=== PATIENT | female | born 1960 | race American Indian/Alaskan Native ===

== ENCOUNTER 2021-01-18 11:30 | Outpatient (CLI) | payer MEDICARE, MEDICAID, SELFPAY ==
--- NOTE | 2021-01-18 11:50 | CT_ITS ---
WS: [id number] LDCT LUNG CANCER SCREENING TECHNIQUE: Noncontrast CT of the chest with coronal and sagittal reformatted images. CLINICAL INFORMATION: HX OF TOBACCO USE COMPARISON: CT chest February 2018 DLP: 51.02 mGy.cm DIvol: 1.[address] scans at [facility] use at least one of these dose optimization techniques: automat ed exposure control; mA and/or kV adjustment per patient size (includes targeted exams where dose is matched to clinical indication); or iterative reconstruction. FINDINGS: No suspicious pulmonary parenchymal opacities. A few calcified granulomas. Advanced chronic emphysematous changes. Aortic calcification. Coronary calcification. Prominent right anterior mediastinal lymph node measuring 11 mm is unchanged. Left subclavian stent. No axillary lym phadenopathy. CT/CT lung screening [id number] IMPRESSION: LUNG-RADS: 2-Benign Appearance or Behavior FOLLOW UP: 12 Month: Continue annual screening with LDCT
== END 2021-01-18 11:31 | disposition home or self-care (01) ==
LOC: RAD 11:46
DX: Z12.2 Encounter for screening for malignant neoplasm of respiratory organs (principal); Z87.891 Personal history of nicotine dependence; I70.0 Atherosclerosis of aorta; I25.10 Atherosclerotic heart disease of native coronary artery without angina pectoris
CPT/HCPCS: 71271

== ENCOUNTER 2021-02-23 09:11 | Outpatient (CLI) | payer MEDICARE, MEDICAID, SELFPAY ==
--- NOTE | 2021-02-23 09:15 | MM_ITS ---
WS: [id number] BILATERAL SCREENING DIGITAL MAMMOGRAM WITH CAD HISTORY: SCREENING COMPARISON: 03/12/2018 Bilateral CC and MLO views submitted. Computer aided detection analyzed. Breast composition: There are scattered areas of fibroglandular density. No suspicious masses, microc alcifications or architectural distortion. Benign scattered calcifications within each breast. MM/[place] [id number] IMPRESSION: BI-RADS: 2-Benign FOLLOW UP: 1 Year Follow-up
== END 2021-02-23 09:12 | disposition home or self-care (01) ==
LOC: RADSHAW 09:14
DX: Z12.31 Encounter for screening mammogram for malignant neoplasm of breast (principal)
CPT/HCPCS: 77067

== ENCOUNTER 2021-10-03 13:17 | Emergency (ER) | payer MEDICARE, MEDICAID, SELFPAY ==
[2021-10-03 13:30] VITALS: BP 97/68; PULSE 84; RESP 21; TEMP 36.1; O2SAT 96; BMI 30.7
[2021-10-03 14:15] LABS: Basophils % 0.6 %; Eosinophils % 0.4 %; Hematocrit 43.7 % (37.0-47.0); Hemoglobin 14.4 g/dL (11.5-15.3); Lymphocytes # 1.9 10^3/uL (0.8-4.8); Lymphocytes % 34.7 %; Mean Corpuscular Hemoglobin 31.2 pg (28.0-34.0); Mean Corpuscular Volume 94.6 fl (81-99); Mean Platelet Volume 9.5 fL (7.4-10.4); Monocytes # 0.7 10^3/uL (0.2-0.9); Monocytes % 12.1 %; Neutrophils # 2.78 10^3/uL (1.8-7.7); Neutrophils % 51.8 %; Nucleated Red Blood Cells % 0 %; Platelet Count 263 10^3/cmm (130-400); Red Blood Count 4.62 10^6/uL (4.1-5.3); Red Cell Distribution Width 13.1 % (12.1-15.1); White Blood Count 5.4 10^3/uL (4.0-10.0)
[2021-10-03 14:39] LABS: Slide Review Slide Review Perform
[2021-10-03 14:46] LABS: Alanine Aminotransferase 17 U/L (0-33); Albumin Level 3.5 g/dL (3.5-5.2); Alkaline Phosphatase 96 IU/L (35-105); Anion Gap 17.1 (5-19); Aspartate Amino Transferase 28 U/L (0-32); Blood Urea Nitrogen 8 mg/dL (8-23); Calcium 8.3 mg/dL (8.5-10.5); Carbon Dioxide 19 mmol/L (22-29); Chloride 107 mmol/L (98-107); Globulin 3.1 g/dL (1.3-4.6); Glucose 95 mg/dL (65-115); Osmolality Calculated 286 mOsm/kg (285-295); Potassium 4.1 mmol/L (3.5-5.1); Sodium 139 mmol/L (136-145); Thyroid Stimulating Hormone 1.68 uIU/mL (0.27-4.20); Total Bilirubin 0.6 mg/dL (0.15-1.2); Total Protein 6.6 g/dL (6.6-8.7)
[2021-10-03 15:25] VITALS: BP 134/84; PULSE 87; RESP 18; O2SAT 97
--- NOTE | 2021-10-03 16:56 | ECG_ITS ---
[facility] Test Date: 2021-10-03 Pat Name: Bea Mazariegos Department: Room: Gender: Female Facility Worker: : 1960 Requested By: Grzegorz Martin Order Number: [id number] Teressa MD: Kimberley Whiting M.D. Measurements Intervals [place] Rate: 88 P: [place]: QRS: 68 QRSD: 128 T: 47 QT: 397 QTc: 482 Interpretive Statements Sinus rhythm with frequent PACs LEFT BUNDLE BRANCH BLOCK [120+ ms QRS DURATION, 80+ ms Q/S IN V1/V2, 85+ ms R IN I/aVL/V5/V6] Compared to ECG 10/24/2018 16:03:59 Ventricular premature complex(es) no longer present Left-axis deviation no longer present Electronically Signed On 10-03-2021 23:45:47 TECHNICAL SUPERVISOR by Kimberley Whiting M.D. [id number]
--- NOTE | 2021-10-03 16:56 | W.ED.ABDPA2 ---
HPI - Abdominal Pain General: Chief Complaint: Abdominal Pain Stated Complaint: WEAK, NEARLY FELL IN ENTRANCE Time Seen by Provider: 10/03/21 16:56 History of Present Illness: HPI narrative: 60-year-old female comes in today with complaints of generalized abdominal pain. 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 Patient appears mildly unwell but not toxic. Patient appears in mild to moderate pain. Respirations are even. Patient does review of history has hypertension, hyperlipidemia, coronary artery disease, and diabetes. Review of Systems General: Reports: 10 or more systems reviewed and unremarkable except in HPI and below GI: Reports: abdominal pain PFSH ED PFSH: Medical History COPD (chronic obstructive pulmonary disease) Coronary artery disease Diabetes HTN (hypertension) Hyperlipidemia Surgical History History of coronary artery stent placement Hx of cholecystectomy Hx of tubal ligation Family History Brother Heart murmur Diabetes Mother Cancer Other CAD (coronary artery disease) Social History Smoking and tobacco status: current every day smoker Alcohol intake: never Physical Exam Const: COMMON NORMALS: no acute distress and patient oriented x3 GENERAL APPEARANCE: cooperative HENMT: COMMON NORMALS: normocephalic and Normal external nose present HEAD & SCALP: normal to inspection and normocephalic NOSE: Normal external nose present MOUTH: Normal oral and palatal mucosa present THROAT: posterior oropharynx normal Eye: GENERAL EYE: appearance normal, both eyes and all related structures Neck/C-Spine: COMMON NORMALS: full ROM Lymph: LYMPHATIC: no lymphadenopathy noted Chest: COMMONS NORMALS: normal inspection of the chest Resp: COMMON NORMALS: normal respiratory effort EFFORT & INSPECTION: Yes able to speak in complete sentences Cardio: COMMON NORMALS: regular rate and regular rhythm RATE: regular rate RHYTHM: regular rhythm GI: COMMON NORMALS: Soft to palpation AUSCULTATION: Yes normoactive bowel sounds PALPATION: Yes Soft to palpation and Yes Tenderness to palpation present (GI) (Mild generalized) : COMMON NORMALS: Yes no CVA tenderness BLADDER/KIDNEY EXAM: Yes no CVA tenderness Back/Pelvis: COMMON NORMALS: no CVA tenderness and thoracic and lumbar spine normal to inspection Extremity: COMMON NORMALS: normal to inspection Neuro: COMMON NORMALS: patient oriented x3 and moves all extremities Psych: COMMON NORMALS: mental status grossly normal and cooperative Skin: COMMON NORMALS: no rashes or lesions noted GENERAL SKIN EXAM: no rashes or lesions noted Course Vital Signs: Vital signs: Vital Signs Temperature 97 F L 10/03/21 13:30 Pulse Rate 77 10/03/21 17:28 Respiratory Rate 18 10/03/21 18:49 Blood Pressure 117/81 10/03/21 18:49 Pulse Oximetry 91 10/03/21 18:49 MDM - Abdominal Pain MDM Narrative: Medical decision making narrative: Patient comes in with some persistent abdominal discomfort for the last week. Patient reports this started the day before and has persisted since then. Patient reports some watery stools with nausea. On exam abdomen soft with generalized tenderness. Bowel sounds are present. Skin is warm and dry. Differential diagnosis includes but not limited to bowel obstruction, constipation, ACS. Laboratory values were unremarkable. Troponin was negative. EKG showed a sinus rhythm with a left bundle branch block. Patient was treated with 1 L of IV fluid, 4 mg of Zofran, and 2 mg of morphine. Patient reported relief of discomfort and felt much better after treatment. Reviewed exam with patient with recommendations for home and rest we will give patient Zofran and dicyclomine for her discomfort. Encourage patient to monitor for fever and blood in vomit or stool. Patient reported understanding of care plan and need for follow-up or return to the ER. Lab Data: Labs: Lab Results 10/03/21 10/03/21 10/03/21 12:00 12:00 12:00 WBC 5.4 10^3/uL 10^3/ uL (4.0-10.0) RBC 4.62 10^6/uL 10^6 /uL (4.1-5.3) Hgb 14.4 g/dL g/dL (11.5-15.3) Hct 43.7 % % (37.0-47.0) MCV 94.6 fl fl (81-99) MCH 31.2 pg pg (28.0-34.0) MCHC 33.0 g/dL g/dL (30.0-36.0) RDW 13.1 % % (12.1-15.1) Plt Count 263 10^3/cmm 10^3 /cmm (130-400) MPV 9.5 fL fL (7.4-10.4) Neut % (Auto) 51.8 % % Lymph % (Auto) 34.7 % % [place] % (Auto) 12.1 % % Eos % (Auto) 0.4 % % Baso % (Auto) 0.6 % % Neut # (Auto) 2.78 10^3/uL 10^3 /uL (1.8-7.7) Lymph # (Auto) 1.9 10^3/uL 10^3/ uL (0.8-4.8) [place] # (Auto) 0.7 10^3/uL 10^3/ uL (0.2-0.9) Eos # (Auto) 0.0 10^3/uL 10^3/ uL (0.0-0.8) Baso # (Auto) 0.0 10^3/uL 10^3/ uL (0.0-0.1) Nucleated RBC % (a uto) 0 % % Nucleated RBCs # 0.0 /100WBC /100W BC Sodium 139 mmol/L mmol/L (136-145) Potassium 4.1 mmol/L mmol/L (3.5-5.1) Chloride 107 mmol/L mmol/L (98-107) Carbon Dioxide 19 mmol/L L mmol/ L (22-29) Anion Gap 17.1 (5-19) BUN 8 mg/dL mg/dL (8-23) Creatinine 0.5 mg/dL mg/dL (0.5-0.9) GFR Calculation 125.0 mL/min mL/m in (90-130) Glucose 95 mg/dL mg/dL (65-115) Calculated Osmolal ity 286 mOsm/kg mOsm/ kg (285-295) Calcium 8.3 mg/dL L mg/dL (8.5-10.5) Total Bilirubin 0.6 mg/dL mg/dL (0.15-1.2) AST 28 U/L U/L (0-32) ALT 17 U/L U/L (0-33) Alkaline Phosphata se 96 IU/L IU/L (35-105) Troponin T Gen 5 n g/L 12 ng/L H ng/L (0-10) Troponin T 120 Min stebbins Delta Troponin T Total Protein 6.6 g/dL g/dL (6.6-8.7) Albumin 3.5 g/dL g/dL (3.5-5.2) Globulin 3.1 g/dL g/dL (1.3-4.6) TSH 1.68 uIU/mL uIU/m L (0.27-4.20) 10/03/21 18:00 WBC RBC Hgb Hct MCV MCH MCHC RDW Plt Count MPV Neut % (Auto) Lymph % (Auto) [place] % (Auto) Eos % (Auto) Baso % (Auto) Neut # (Auto) Lymph # (Auto) [place] # (Auto) Eos # (Auto) Baso # (Auto) Nucleated RBC % (a uto) Nucleated RBCs # Sodium Potassium Chloride Carbon Dioxide Anion Gap BUN Creatinine GFR Calculation Glucose Calculated Osmolal ity Calcium Total Bilirubin AST ALT Alkaline Phosphata se Troponin T Gen 5 n g/L Troponin T 120 Min stebbins 11.63 ng/L H ng/L (0-10) Delta Troponin T -0.37 ABS# L ABS# (0-10) Total Protein Albumin Globulin TSH EKG Data ^: EKG 1: Attestation: I personally reviewed and interpreted this EKG as follows: (1823 EKG shows a sinus rhythm with a regular rate at 88 bpm. Computer reads a atrial fibrillation with a left bundle branch block. Review of the image notes regular P waves suggestive of sinus rhythm, there is artifact on the EKG, patient also has some PACs noted, no ST elevation is otherwise note) Discharge Plan Discharge Patient Disposition: Home Clinical Impression: Abdominal pain Qualifiers: Abdominal location: generalized Qualified Code(s): R10.84 - Generalized abdominal pain Condition: Stable Prescriptions: New ondansetron 4 mg tablet,disintegrating 4 mg PO Q8H PRN (Reason: nausea and vomiting) Qty: 7 RF: 0 dicyclomine 20 mg tablet 20 mg PO QID PRN (Reason: abdominal pain) Qty: 20 RF: 0 No Action amlodipine 5 mg tablet 5 mg PO DAILY RF: 0 pantoprazole 40 mg tablet,delayed release (DR/EC) 40 mg PO DAILY RF: 0 nitroglycerin 0.4 mg tablet, sublingual 0.4 mg sublingual Q5M PRNRF: 0 metformin 500 mg tablet 500 mg PO BID RF: 0 carvedilol 25 mg tablet 25 mg PO BID RF: 0 rosuvastatin 20 mg tablet 20 mg PO DAILY RF: 0 cilostazol 50 mg tablet 50 mg PO BID RF: 0 Discharge Orders: Discharge ED (Routine); Ordered 10/03/21 Ordered By: Grzegorz Dunn Referrals: Kathi Mullins NP [Primary Care Provider] - Discharge Diet: Usual diet Discharge Activity: Increase activity as tolerated Patient Instructions: Abdominal Pain (ED), Opioid Safety Activity Restrictions/Additional Instructions: Home and rest. Continue drinking plenty of fluids. Start with a light diet avoiding strong spices, grease, and acids. A bland diet such as bananas, rice, apples, toast, boiled chicken may be easier on the stomach. Use ondansetron as needed for nausea or vomiting. Use dicyclomine 20 mg every 6 hours as needed for abdominal discomfort. Follow-up with primary care in 2 to 3 days for recheck. Return to the ER for fever greater than 100.4, blood in vomit or stool, or new concerns. Coding Level of Care Code ED Meat Boner And Slicer for Chg Fwd Exam Comprehensive
--- NOTE | 2021-10-03 17:02 | XRR_ITS ---
PROCEDURE INFORMATION: Exam: XR Complete Acute Abdomen Series Including Chest Exam date and time: 10/03/2021 5:02 PM Age: 60 years old Clinical indication: Nausea and vomiting; Abdominal pain; Prior surgery; Surgery type: Gb; Additional info: Abd pain, n/v/d TECHNIQUE: Imaging protocol: XR complete acute abdomen series, including 2 or more views of the abdomen and a single view chest. Total images: 4 COMPARISON: CR Chest 1 [place] [id number] 11/08/2018 6:09 PM FINDINGS: Lungs: No visible active interstitial or alveolar airspace disease. Pleural spaces: Normal. No pleural effusions. No pneumothorax. Heart/Mediastinum: Cardiac structures and configuration within normal limits. Gastrointestinal tract: Nonobstructive bowel pattern. No visible adynamic or reactive ileus. Intraperitoneal space: No visible pneumoperitoneum. Organs: Status post cholecystectomy. Bones/joints: Scoliotic curvature of the spine. Soft tissues: Unremarkable. XR/XR acute abdomen series [id number] IMPRESSION: Nonacute. Radiation Dose CTDIVOL = (mGy): DLP = (mGy-cm)
[2021-10-03 17:21] LABS: Troponin T (5th) Once 12 ng/L (0-10)
[2021-10-03] MEDS: sodium chloride 0.9% 1,000 ML 999 ML IV (17:21)
[2021-10-03] MEDS: ondansetron 2 mg/ML SDV 2 mL 4 MG IVP (17:23)
[2021-10-03] MEDS: morphine 4 mg/mL SDV 1 mL 2 MG IVP ×2 (17:24→19:13)
[2021-10-03 17:28] VITALS: BP 126/99; PULSE 77; RESP 18; O2SAT 95
[2021-10-03 18:35] LABS: Troponin 5 2HR 11.63 ng/L (0-10)
[2021-10-03 18:36] LABS: Troponin 5 2HR Delta -0.37 ABS# (0-10)
[2021-10-03 18:49] VITALS: BP 117/81; RESP 18; O2SAT 91
[2021-10-03 19:19] VITALS: BP 112/94; PULSE 78; RESP 18; O2SAT 98
== END 2021-10-03 19:22 | disposition home or self-care (01) ==
PROVIDERS: Emergency Medicine; Emergency Provider Nurse Practitioner Family; PCP Nurse Practitioner Family
DX: R10.84 Generalized abdominal pain (principal); Z79.84 Long term (current) use of oral hypoglycemic drugs; J44.9 Chronic obstructive pulmonary disease, unspecified; I25.10 Atherosclerotic heart disease of native coronary artery without angina pectoris; E11.9 Type 2 diabetes mellitus without complications; I10 Essential (primary) hypertension; E78.5 Hyperlipidemia, unspecified; F17.210 Nicotine dependence, cigarettes, uncomplicated
CPT/HCPCS: 74022; 80053; 84443; 84484; 85025; 93005; 96361; 96374; 96375; 96376; 99284; J2270; J2405; J7030

== ENCOUNTER 2023-01-22 14:41 | Outpatient (CLI) | payer MEDICARE, MEDICAID, SELFPAY ==
--- NOTE | 2023-01-22 14:49 | MR_ITS ---
WS: [id number] MRI LUMBAR SPINE NONCONTRAST TECHNIQUE: Sagittal T1, T2 and STIR imaging. Axial T1 and T2 imaging. CLINICAL INFORMATION: BILATERAL LEG WEAKNESS COMPARISON: None. FINDINGS: Mild lumbar curve. No acute compression. No high-grade central canal stenosis. Slight anterolisthesis L3 on L4 and L4 on L5. L1-L2: Mild facet arthropathy. Spinal canal and foramen are patent. L2-L3: Mild annular bulging. Mild facet arthropathy. Spinal canal and foramen are patent. L3-L4: Mild annular bulging combination with facet arthropathy and ligamentum flavum hypertrophy resu lts in moderate central canal stenosis. Impingement subarticular recess bilaterally. LEFT foraminal p rotrusion impinges the exiting LEFT L3 nerve root with moderate LEFT foraminal narrowing. Mild RIGHT foraminal narrowing. L4-L5: Mild disc bulging with osteophytic ridging. Mild central canal stenosis. Slight impingement tr aversing L5 nerve roots bilaterally. Moderate facet arthropathy. Small LEFT facet effusion with tiny LEFT synovial cyst measuring 3.8 mm. This contributes to impingement on the traversing LEFT L5 nerve root in the subarticular recess. Foramen are patent. L5-S1: Mild annular bulging. Moderate facet arthropathy. Spinal canal foramen are patent. Small RIGHT facet effusion. Infrarenal abdominal aortic aneurysm measuring 3.1 x 2.9 x 3.4 cm AP by transverse by craniocaudal. T his can be followed up with CTA. Visualized pelvic bony structures: Normal. Paravertebral soft tissues: Normal. MR/MR lumbar spine wo con* [id number] IMPRESSION: 1. Mild lumbar curve. No acute compression. 2. Moderate central canal stenosis L3-L4 due to slight anterolisthesis in comb ination with mild annular bulging with facet arthropathy and ligamentum flavum hypertrophy. Impingement on the subarticular recess bilaterally. 3. Small LEFT foraminal protrusion L3-L4 impinges the exiting LEFT L3 nerve ro ot with moderate LEFT foraminal narrowing. 4. Mild central canal stenosis L4-L5. 5. 3.8 mm synovial cyst LEFT L4-L5 impinges the traversing LEFT L5 nerve root in the subarticular recess. Adjacent small LEFT facet effusion.. 6. Moderate facet arthropathy L3-L5. 7. Infrarenal abdominal aortic aneurysm partially visualized measuring 3.1 x 2 .9 x 3.4 cm AP by transverse by craniocaudal. This can be followed up with CTA.
== END 2023-01-22 14:42 | disposition home or self-care (01) ==
LOC: RAD 14:42
PROVIDERS: Visit Provider Family Medicine
DX: R29.898 Other symptoms and signs involving the musculoskeletal system (principal); R53.1 Weakness; I71.43 Infrarenal abdominal aortic aneurysm, without rupture; M47.816 Spondylosis without myelopathy or radiculopathy, lumbar region; M48.061 Spinal stenosis, lumbar region without neurogenic claudication; M51.26 Other intervertebral disc displacement, lumbar region
CPT/HCPCS: 72148

== ENCOUNTER 2023-05-09 12:59 | Inpatient (IN) | payer MEDICARE, MEDICAID, SELFPAY ==
[2023-05-09] VITALS (11 sets, daily range): BP systolic 112–155; BP diastolic 73–93; PULSE 57–78; RESP 14–28; TEMP 36.5–36.9; O2SAT 93–97; BMI 29.2
--- NOTE | 2023-05-09 13:06 | ECG_ITS ---
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 Measurements Intervals [place] Rate: 65 P: 4 IA: 155 QRS: -39 QRSD: 133 T: 48 QT: 426 QTc: 444 Interpretive Statements SINUS RHYTHM LEFT AXIS DEVIATION [QRS AXIS < -30] LEFT BUNDLE BRANCH BLOCK [120+ ms QRS DURATION, 80+ ms Q/S IN V1/V2, 85+ ms R IN I/aVL/V5/V6] Compared to ECG 10/03/2021 18:24:07 Left-axis deviation now present Electronically Signed On 05-09-2023 16:14:39 CDT by Kulwant Henry M.D. [id number]
--- NOTE | 2023-05-09 13:13 | XR_ITS ---
WS: [id number] Portable AP upright chest, 05/09/2023 Clinical Data: chest pain Comparison: Portable chest, 10/03/2021 Findings: No nodules, masses or effusions are seen. The heart is normal. The pulmonary vascularity is not increased. No pneumonia or pneumothorax is seen. The aortic arch shows mild calcification with m inimal tortuosity. There are monitor leads on the chest wall. XR/XR chest 1V portable [id number] Impression: Atherosclerosis.
--- NOTE | 2023-05-09 13:20 | W.ED.CHESTPA ---
HPI - Chest Pain General: Chief Complaint: Chest Pain Stated Complaint: chest pain Time Seen by Provider: 05/09/23 13:12 History of Present Illness: Patient presents to the ER today with complaints of chest and stomach pain starting yesterday. Patient states she just has a gas buildup but puts pressure on her heart. Patient has some nausea some shortness of breath but no more than usual. Patient does have a history of COPD. Patient currently rates her pain a 0 out of 10. Patient says she has had multiple problems with getting all of her medicines for the last several years. Patient also states she had multiple abdominal surgeries due to: Problems since . Review of Systems General: Reports: 10 or more systems reviewed and unremarkable except in HPI and below PFSH ED PFSH: Medical History COPD (chronic obstructive pulmonary disease) Coronary artery disease Diabetes HTN (hypertension) Hyperlipidemia Surgical History History of coronary artery stent placement Hx of cholecystectomy Hx of tubal ligation Family History Brother Heart murmur Diabetes Mother Cancer Other CAD (coronary artery disease) Social History Smoking and tobacco status: current every day smoker Alcohol intake: never Substance/Drug Use: never Physical Exam Const: COMMON NORMALS: no acute distress, average body habitus, patient oriented x3, no limitations, healthy appearing, alert and well nourished HENMT: COMMON NORMALS: normocephalic, atraumatic, hearing grossly normal bilaterally, external ears normal, Normal external nose present and moist oral mucous membranes HEAD & SCALP: normocephalic and atraumatic NOSE: Normal external nose present EXTERNAL EAR: Yes external ears normal Neck/C-Spine: COMMON NORMALS: full ROM, no lymphadenopathy, supple, no meningeal signs, no JVD and Thyroid normal THYROID: Thyroid normal Lymph: LYMPHATIC: no lymphadenopathy noted Chest: COMMONS NORMALS: normal inspection of the chest and normal palpation of entire chest wall Resp: COMMON NORMALS: normal respiratory effort, No retractions, No use of accessory muscles and clear to auscultation bilaterally AUSCULTATION: clear to auscultation bilaterally Cardio: COMMON NORMALS: no JVD, regular rate, regular rhythm, S1 normal heart sound present, S2 normal heart sound present, No gallops present (Cardio), No clicks present (Cardio), No murmurs present (Cardio) and No rub (Cardio) RATE: regular rate RHYTHM: regular rhythm HEART SOUNDS: S1 normal heart sound present and S2 normal heart sound present GI: COMMON NORMALS: Normal to inspection, nondistended, normoactive bowel sounds present, Soft to palpation, non-tender, No hepatosplenomegaly present and no masses PALPATION: Yes Soft to palpation and Yes No hepatosplenomegaly present : COMMON NORMALS: Yes no CVA tenderness BLADDER/KIDNEY EXAM: Yes no CVA tenderness Back/Pelvis: COMMON NORMALS: no CVA tenderness Neuro: COMMON NORMALS: patient oriented x3 SENSORIUM/ORIENTATION: Yes alert MENINGEAL SIGNS: Yes no meningeal signs Course Vital Signs: Vital signs: Vital Signs Temperature 98.4 F 05/09/23 13:03 Pulse Rate 75 05/09/23 16:22 Respiratory Rate 28 H 05/09/23 15:26 Blood Pressure 121/84 05/09/23 16:22 Pulse Oximetry 95 05/09/23 16:22 Oxygen Delivery Me thod Room Air 05/09/23 13:03 MDM - Chest Pain Medical Decision Making Patient presents to the ER with complaints of chest pain and stomach pain nausea vomiting. Patient was worked up with a standard fashion of exam and lab work and imaging. Lab work was essentially benign except for elevated lipase at 1328, chest x-ray was negative for acute change, and CT was negative for acute intra-abdominal or pelvic abnormalities. Since patient was having pain, nausea vomiting, it was thought patient would benefit from inpatient further evaluation and treatment for her elevated lipase so Dr. Madrigal was consulted and he agreed patient will be admitted to [facility]. Differential Diagnosis Unlikely acute massive pulmonary embolism, acute respiratory failure, acute myocardial infarction, cardiac arrest or sudden cardiac Medical Records I reviewed the patient's medical records. Lab Data I reviewed the patient's lab results. 05/09/23 13:07 05/09/23 13:07 Radiology Impressions Chest X-Ray 05/09/23 13:13 Impression: Atherosclerosis. Abdomen/Pelvis CT 05/09/23 13:52 Impression: Negative for acute intra-abdominal or pelvic abnormalities and no change from prior exam. Laboratory Results WBC 8.8 10^3/uL (4.0-10.0) 05/09/23 13:07 RBC 4.28 10^6/uL (4.1-5.3) 05/09/23 13:07 Hgb 13.6 g/dL (11.5-15.3) 05/09/23 13:07 Hct 42.2 % (37.0-47.0) 05/09/23 13:07 MCV 98.6 fl (81-99) 05/09/23 13:07 MCH 31.8 pg (28.0-34.0) 05/09/23 13:07 MCHC 32.2 g/dL (30.0-36.0) 05/09/23 13:07 RDW 13.1 % (12.1-15.1) 05/09/23 13:07 Plt Count 331 10^3/cmm (130-400) 05/09/23 13:07 MPV 9.8 fL (7.4-10.4) 05/09/23 13:07 Neut % (Auto) 59.0 % 05/09/23 13:07 Lymph % (Auto) 30.0 % 05/09/23 13:07 [place] % (Auto) 8.0 % 05/09/23 13:07 Eos % (Auto) 1.9 % 05/09/23 13:07 Baso % (Auto) 0.9 % 05/09/23 13:07 Neut # (Auto) 5.17 10^3/uL (1.8-7.7) 05/09/23 13:07 Lymph # (Auto) 2.6 10^3/uL (0.8-4.8) 05/09/23 13:07 [place] # (Auto) 0.7 10^3/uL (0.2-0.9) 05/09/23 13:07 Eos # (Auto) 0.2 10^3/uL (0.0-0.8) 05/09/23 13:07 Baso # (Auto) 0.1 10^3/uL (0.0-0.1) 05/09/23 13:07 Nucleated RBC % (auto) 0 % 05/09/23 13:07 Nucleated RBCs # 0.0 /100WBC 05/09/23 13:07 Sodium 139 mmol/L (136-145) 05/09/23 13:07 Potassium 4.2 mmol/L (3.5-5.1) 05/09/23 13:07 Chloride 106 mmol/L (98-107) 05/09/23 13:07 Carbon Dioxide 23 mmol/L (22-29) 05/09/23 13:07 Anion Gap 14.2 (5-19) 05/09/23 13:07 BUN 9 mg/dL (8-23) 05/09/23 13:07 Creatinine 0.6 mg/dL (0.5-0.9) 05/09/23 13:07 GFR Calculation 100.6 mL/min (90-130) 05/09/23 13:07 Glucose 99 mg/dL (65-115) 05/09/23 13:07 Calculated Osmolality 287 mOsm/kg (285-295) 05/09/23 13:07 Calcium 8.9 mg/dL (8.5-10.5) 05/09/23 13:07 Magnesium 1.9 mg/dL (1.7-2.3) 05/09/23 13:00 Total Bilirubin 0.6 mg/dL (0.15-1.2) 05/09/23 13:07 AST 16 U/L (0-32) 05/09/23 13:07 ALT 15 U/L (0-33) 05/09/23 13:07 Alkaline Phosphatase 94 U/L (35-105) 05/09/23 13:07 Troponin T Baseline 9 ng/L (0-10) 05/09/23 13:07 Troponin T 120 Minute 12.52 ng/L (0-10) H 05/09/23 15:07 Delta Troponin T 3.52 ABS# (0-10) 05/09/23 15:07 Total Protein 6.4 g/dL (6.6-8.7) L 05/09/23 13:07 Albumin 3.8 g/dL (3.5-5.2) 05/09/23 13:07 Globulin 2.6 g/dL (1.3-4.6) 05/09/23 13:07 Lipase 1328 U/L (13-60) H 05/09/23 13:00 EKG Data EKG 1: I personally reviewed and interpreted this EKG as follows: EKG interpretation date: 05/09/23 EKG interpretation time: 15:20 Interpretation: EKG shows sinus rhythm with ventricular rate of 72 beats minute, PA interval 158, QRS duration 132, QTc of 415, left bundle branch block, Discharge Plan Discharge Patient Disposition: Admitted As Inpatient Clinical Impression: Acute pancreatitis Condition: Stable Coding Level of Care Code ED Receptionist Telephone Operator for Reena Berger
[2023-05-09 13:22] LABS: Basophils # 0.1 10^3/uL (0.0-0.1); Basophils % 0.9 %; Eosinophils # 0.2 10^3/uL (0.0-0.8); Eosinophils % 1.9 %; Hematocrit 42.2 % (37.0-47.0); Hemoglobin 13.6 g/dL (11.5-15.3); Lymphocytes # 2.6 10^3/uL (0.8-4.8); Mean Corpuscular HGB Conc 32.2 g/dL (30.0-36.0); Mean Corpuscular Hemoglobin 31.8 pg (28.0-34.0); Mean Corpuscular Volume 98.6 fl (81-99); Mean Platelet Volume 9.8 fL (7.4-10.4); Monocytes # 0.7 10^3/uL (0.2-0.9); Neutrophils # 5.17 10^3/uL (1.8-7.7); Nucleated Red Blood Cells % 0 %; Platelet Count 331 10^3/cmm (130-400); Red Blood Count 4.28 10^6/uL (4.1-5.3); Red Cell Distribution Width 13.1 % (12.1-15.1); White Blood Count 8.8 10^3/uL (4.0-10.0)
[2023-05-09 13:37] LABS: Alanine Aminotransferase 15 U/L (0-33); Albumin Level 3.8 g/dL (3.5-5.2); Alkaline Phosphatase 94 U/L (35-105); Anion Gap 14.2 (5-19); Aspartate Amino Transferase 16 U/L (0-32); Blood Urea Nitrogen 9 mg/dL (8-23); Calcium 8.9 mg/dL (8.5-10.5); Carbon Dioxide 23 mmol/L (22-29); Chloride 106 mmol/L (98-107); Globulin 2.6 g/dL (1.3-4.6); Glomerular Filtration Rate 100.6 mL/min (90-130); Glucose 99 mg/dL (65-115); Osmolality Calculated 287 mOsm/kg (285-295); Potassium 4.2 mmol/L (3.5-5.1); Sodium 139 mmol/L (136-145); Total Bilirubin 0.6 mg/dL (0.15-1.2); Total Protein 6.4 g/dL (6.6-8.7)
[2023-05-09 13:39] LABS: Troponin(5th) Baseline 9 ng/L (0-10)
[2023-05-09 13:42] LABS: Magnesium 1.9 mg/dL (1.7-2.3)
[2023-05-09 13:49] LABS: Lipase 1328 U/L (13-60)
--- NOTE | 2023-05-09 13:52 | CT_ITS ---
WS: [id number] CT scan of the abdomen and pelvis with IV contrast. Additional two-dimensional coronal and sagittal r econstruction was performed. 05/09/2023 Clinical Data: chest pain, epigastric pain, elevated lipase Comparison: CT abdomen pelvis, 10/24/2018 DLP: 602.[address] scans at [facility] use at least one of these dose optimization techniques: automated e xposure control; mA and/or kV adjustment per patient size (includes targeted exams where dose is matc hed to clinical indication); or iterative reconstruction. Findings: The lower lungs show no nodules, masses or effusions. The liver, spleen, adrenal glands and pancreas are normal. The gallbladder is absent. The kidneys show equal bilateral contrast excretion with an unchanged left anterior angiomyolipoma. N o cysts, masses, dilatation or calculi are seen.. The abdominal aorta shows atherosclerotic dilatation with calcification in the wall unchanged.. No appendicitis or diverticulitis is seen. The stomach, small bowel and colon are unremarkable. No ab scess, adenopathy, ascites, mass, obstruction or free air is seen. The bladder is unremarkable. No in guinal hernia is seen. The uterus is normal. The bones of the lower thorax, lumbar spine, pelvis, and hips show minimal osteoarthritis of the lumb ar vertebral bodies. CT/CT abdomen pelvis w con* [id number] Impression: Negative for acute intra-abdominal or pelvic abnormalities and no change from p rior exam.
[2023-05-09] MEDS: iohexol 350 mg/mL 500 mL Btl (per mL) IV (14:27)
--- NOTE | 2023-05-09 15:13 | ECG_ITS ---
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 Measurements Intervals [place] Rate: 72 P: 23 ND: 158 QRS: -16 QRSD: 132 T: 59 QT: 391 QTc: 428 Interpretive Statements SINUS RHYTHM WITH OCCASIONAL ECTOPIC PREMATURE COMPLEXES LEFT BUNDLE BRANCH BLOCK [120+ ms QRS DURATION, 80+ ms Q/S IN V1/V2, 85+ ms R IN I/aVL/V5/V6] Compared to ECG 05/09/2023 13:13:16 Left-axis deviation no longer present Electronically Signed On 05-09-2023 16:15:00 CDT by Kulwant Henry M.D. [id number]
[2023-05-09 15:34] LABS: Troponin 5 2HR 12.52 ng/L (0-10)
[2023-05-09 15:44] LABS: Troponin 5 2HR Delta 3.52 ABS# (0-10)
--- NOTE | 2023-05-09 16:01 | PC.PHAR ---
PT STATES SHE TAKES CARE OF HER OWN MEDICATIONS-PT STATES SHE STOP TAKING AMLODIPINE 10MG DAILY EXT SHOWS LAST FILLED 03/27/23 90D/S PT STATES IT MADE HER SO SICK SO SHE HASNT TAKEN FOR 2-3 MONTHS-PT STATES SHE HASNT STARTED TAKING AMITRIPTYLINE 25MG HS FILLED 04/21/23 90D/S-PT STATES SHE HASNT HAD A NITRO PRESCRIPTION FOR YEARS-PT STATES SHE DCED HER METFORMIN ER 500MG FILLED 05/16/22 90D/S PT STATES NOT TAKEN FOR A YEAR-PT STATES SHE TAKES CARVEDILOL 25MG BID RX FILLED 05/29/22 90D/S 25MG QAM AND 37.5MG QPM-
--- NOTE | 2023-05-09 16:33 | PM.HP ---
Providers/Chief Complaint Chief Complaint: chest pain History of Present Illness Bea Mazariegos is a 62 year old female with a past history of CAD status post RCA stenting, history of COPD, used to be on oxygen she tells me, as she lost her primary care provider now she cannot get her oxygen renewed, history of hyperlipidemia, history of peripheral vascular disease, history of GERD, current smoker, history of migraine headaches, who presents to [facility] due to epigastric discomfort, radiating to her back, radiating to her left side. 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 She tells me that for the last few days she has felt bloated, has not had epigastric discomfort, which has radiated to her left side, radiated to her back, associated with nausea, no vomiting, she also felt pain in her chest, but no isolated chest pain no shortness of breath no diaphoresis, she is also been dealing with severe migraine headaches, and she has been using Excedrin daily, she does report a history of bloody stools in the distant past, she apparently took a trip sometime ago to [place] and she tells me that she had bloody stools throughout the trip, but she has not had bloody stools in a long time, no history of hemorrhoids, she has had multiple scopes she tells me with no significant findings, she never required blood transfusions, denies a history of alcoholism, is a smoker, no steroid use, she is status post cholecystectomy, no significant trauma, Review of Systems Const: Reports: malaise; Denies: fever(s) Eyes: Denies: change in vision ENMT: Denies: throat pain Card: Reports: chest pain Resp: Denies: dyspnea or non-productive cough GI: Reports: abdominal pain, nausea, diarrhea and bloating; Denies: vomiting, hematemesis, coffee ground emesis, dysphagia, heartburn, pain on defecation, change in stool character, hematochezia or melena : Denies: flank pain Musc: Reports: back pain; Denies: neck pain Skin/Breast: Denies: rash Neuro: Denies: headache(s) Medications/Allergies Home Medications Medication Instructions Recorded Confirmed Last Taken Type carvedilol 25 mg tablet 25 mg PO BID 01/23/21 05/09/23 05/09/23 10:00 History see pharmacy comment cilostazol 50 mg tablet 50 mg PO BID 01/23/21 05/09/23 05/09/23 10:00 History pantoprazole 40 mg tablet,delayed 40 mg PO QAM 01/23/21 05/09/23 05/09/23 10:00 History release rosuvastatin 20 mg tablet 20 mg PO BEDTIME 01/23/21 05/09/23 05/08/23 History amitriptyline 25 mg tablet 25 mg PO BEDTIME 05/09/23 05/09/23 Unknown History [id number] 250 2 tab PO QID PRN Migraine Headache 05/09/23 05/09/23 05/09/23 10:00 History mg-250 mg-65 mg tablet (Excedrin Migraine) Allergies Allergy/AdvReac Type Severity Reaction Status Date / Time naproxen [From Aleve] AdvReac ADR-Migrain Verified 05/09/23 15:55 e PFSH Acute PFSH: Medical History COPD (chronic obstructive pulmonary disease) Coronary artery disease Diabetes HTN (hypertension) Hyperlipidemia Surgical History History of coronary artery stent placement Hx of cholecystectomy Hx of tubal ligation Family History Brother Heart murmur Diabetes Mother Cancer Other CAD (coronary artery disease) Social History Smoking and tobacco status: current every day smoker Alcohol intake: never Substance/Drug Use: never Vitals/I&O/Wt Last Vital Signs Temp 98.4 F 05/09/23 13:03 Pulse 75 05/09/23 16:22 Resp 28 H 05/09/23 15:26 BP 121/84 05/09/23 16:22 Pulse Ox 95 05/09/23 16:22 O2 Del Method Room Air 05/09/23 13:03 Weight last 48 hrs Weight 72.575 kg Physical Exam Const: COMMON NORMALS: no acute distress and patient oriented x3 GENERAL APPEARANCE: cooperative, well kempt and well developed HENMT: COMMON NORMALS: normocephalic, Normal external nose present and oropharynx normal HEAD & SCALP: normocephalic FACE & SINUS: normal facial exam NOSE: Normal external nose present MOUTH: Normal oral and palatal mucosa present THROAT: posterior oropharynx normal Eye: COMMON NORMALS: Equal, round and reactive pupils present, conjunctivae normal and no scleral icterus CONJUNCTIVA: Yes conjunctivae normal PUPIL: Yes Equal, round and reactive pupils present Neck/C-Spine: COMMON NORMALS: full ROM, no lymphadenopathy, no JVD, Thyroid normal and No carotid bruits THYROID: Thyroid normal Lymph: LYMPHATIC: no lymphadenopathy noted Chest: COMMONS NORMALS: normal inspection of the chest Resp: COMMON NORMALS: normal respiratory effort, No retractions, No use of accessory muscles and clear to auscultation bilaterally AUSCULTATION: clear to auscultation bilaterally Cardio: COMMON NORMALS: regular rate, regular rhythm, S1 normal heart sound present, S2 normal heart sound present, No murmurs present (Cardio) and Peripheral pulses 2+ throughout RATE: regular rate RHYTHM: regular rhythm HEART SOUNDS: S1 normal heart sound present and S2 normal heart sound present PERIPHERAL PULSES: Peripheral pulses 2+ throughout GI: COMMON NORMALS: Normal to inspection, nondistended, normoactive bowel sounds present and Soft to palpation PALPATION: Yes Soft to palpation and Yes No hepatosplenomegaly present OTHER: Does have epigastric tenderness, some left upper quadrant tenderness, no guarding, no rebound, no rigidity Back/Pelvis: COMMON NORMALS: no CVA tenderness Extremity: COMMON NORMALS: normal to inspection, full ROM, capillary refill normal, no calf tenderness and no pedal edema Neuro: COMMON NORMALS: patient oriented x3, CN's II-XII intact bilaterally, moves all extremities, no focal motor deficits and no sensory deficits noted Psych: COMMON NORMALS: mental status grossly normal, Normal thought process present, cooperative and speech normal APPEARANCE: Yes well kempt SPEECH: Yes normal speech THOUGHT PROCESS: Normal thought process present Skin: COMMON NORMALS: turgor normal and no jaundice GENERAL SKIN EXAM: turgor normal Data 05/09/23 13:07 05/09/23 13:07 A&P Assessment and plan (1) Acute pancreatitis: (2) HTN (hypertension): Qualifiers: Hypertension type: essential hypertension Qualified Code(s): I10 - Essential (primary) hypertension (3) Hyperlipidemia: Qualifiers: Hyperlipidemia type: unspecified Qualified Code(s): E78.5 - Hyperlipidemia, unspecified (4) Coronary artery disease: (5) Encounter for smoking cessation counseling: (6) Goals of care, counseling/discussion: Plan Acute pancreatitis -No significant radiographic evidence of pancreatitis -Does have elevated lipase, epigastric discomfort, nausea -We will obtain CRP, Pro-[place], GGT, amylase -Serial abdominal exams -Clear liquids for now -IV fluids -Morphine for pain control -She does not have any significant cardiac symptoms it seems like her pain or is in the epigastrium, that radiates to her chest, however she does have a history of RCA stenting and she has not been taking her aspirin, I will order cardiac echo, serial EKGs serial troponins telemetry monitoring -A1c, lipid panel -Monitor blood pressures closely -Full code goals of care discussion, patient wants to be a full code -Smoking cessation counseling -Protonix for GI prophylaxis -Lovenox and SCDs for DVT prophylaxis Attestations Medical Necessity Statement*: Patient requires hospitalization, outpatient with observation, for epigastric discomfort concerning for pancreatitis, Coding Level of Care Code Acute Code for Chg Fwd Diagnoses Acute pancreatitis K85.90 HTN (hypertension) I10 Hypertension type: essential hypertension Hyperlipidemia E78.5 Hyperlipidemia type: unspecified Coronary artery disease I25.10 Encounter for smoking cessation counseling Z71.6 Goals of care, counseling/discussion Z71.89
[2023-05-09 17:10] LABS: NT Pro B Type Natriuretic Pept 338 pg/mL (0-125); Procalcitonin 0.05 ng/mL (0-0.5)
[2023-05-09 17:20] LABS: C Reactive Protein 6.1 mg/L (0.0-4.9)
[2023-05-09 17:25] LABS: Amylase 494 U/L (28-100); Gamma Glutamyl Transferase 31 U/L (5-36)
[2023-05-09 17:58] LABS: Amphetamines Screen Urine Negative (Negative); Barbiturates Screen Urine Negative (Negative); Benzodiazepines Screen Urine Negative (Negative); Cocaine Screen Urine Negative (Negative); Opiate Screen Urine Negative (Negative); PCP Screen Urine Negative (Negative); THC Screen Urine Positive (Negative)
--- NOTE | 2023-05-09 19:13 | ECG_ITS ---
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 Measurements Intervals [place] Rate: 67 P: 45 [place]: 182 QRS: -24 QRSD: 141 T: 63 QT: 423 QTc: 449 Interpretive Statements SINUS RHYTHM WITH SINUS ARRHYTHMIA LEFT BUNDLE BRANCH BLOCK [120+ ms QRS DURATION, 80+ ms Q/S IN V1/V2, 85+ ms R IN I/aVL/V5/V6] Compared to ECG 05/09/2023 15:20:53 No significant changes Electronically Signed On 05-10-2023 1:10:29 CDT by Kulwant Henry M.D. [id number]
[2023-05-09 19:27] LABS: Troponin 5 6HR 9.72 ng/L (0-10)
[2023-05-09 19:28] LABS: Chol HDL Ratio 2.63 mg/dL (0.0-4.40); Cholesterol 150 mg/dL (0-200); HDL Cholesterol 57 mg/dL (60-100); LDL Cholesterol Calculated 63 mg/dL (50-129); LDL HDL Ratio 1.11 RATIO (0.00-3.22); Triglycerides 151 mg/dL (0-150)
[2023-05-09 19:37] LABS: Estmated Average Glucose 111; Hemoglobin A1C 5.5 % (4.0-6.0)
[2023-05-09] MEDS: carvedilol 12.5 mg Tablet PO (19:50)
[2023-05-09] MEDS: enoxaparin 40 mg/0.4 mL Syringe SUBCUT (19:50)
[2023-05-09] MEDS: cilostazol 100 mg Tablet 50 MG PO (19:50)
[2023-05-09] MEDS: sodium chloride 0.9% 1,000 ML 75 ML IV (19:51)
[2023-05-09 19:59] LABS: Troponin 5 6HR Delta 0.72 ng/L (0-12)
[2023-05-09 20:14] LABS: Add Urine Microscopic? YES; Bacteria Urine TRACE /hpf; Bilirubin Urine Neg (Negative); Blood Urine 2+ (Negative); Glucose Urine UA Norm (Normal); Ketones Urine Negative (Negative); Leukocyte Esterase Urine Negative (Negative); Nitrate Urine Negative (Negative); Protein Urine Neg (Negative); RBC Urine 0-4 /hpf (0-2); Urine Appearance Clear (CLEAR); Urine Color Straw (Yellow); Urobilinogen Urine Norm (Negative); WBC Urine 0-4 /hpf (0-5); pH Urine 7 (5-7)
[2023-05-09 20:15] LABS: Add Urine Culture? No
[2023-05-09] MEDS: pantoprazole 40 mg SDV IVP (21:30)
[2023-05-09] MEDS: atorvastatin 40 mg Tablet 80 MG PO (21:32)
[2023-05-09] MEDS: amitriptyline 25 mg Tablet PO (21:32)
[2023-05-09 21:33] LABS: Thyroid Stimulating Hormone 2.69 uIU/mL (0.27-4.20)
[2023-05-10] VITALS (10 sets, daily range): BP systolic 108–136; BP diastolic 70–84; PULSE 63–86; RESP 14–18; TEMP 36.5–36.9; O2SAT 92–96
[2023-05-10 07:21] LABS: Basophils # 0.1 10^3/uL (0.0-0.1); Basophils % 1.1 %; Eosinophils # 0.1 10^3/uL (0.0-0.8); Eosinophils % 2.1 %; Hematocrit 40.5 % (37.0-47.0); Lymphocytes # 2.3 10^3/uL (0.8-4.8); Lymphocytes % 40.7 %; Mean Corpuscular HGB Conc 32.1 g/dL (30.0-36.0); Mean Corpuscular Volume 99.8 fl (81-99); Mean Platelet Volume 10.8 fL (7.4-10.4); Monocytes # 0.6 10^3/uL (0.2-0.9); Monocytes % 10.2 %; Neutrophils # 2.61 10^3/uL (1.8-7.7); Neutrophils % 45.7 %; Nucleated Red Blood Cells % 0.4 %; Platelet Count 410 10^3/cmm (130-400); Red Blood Count 4.06 10^6/uL (4.1-5.3); Red Cell Distribution Width 13.1 % (12.1-15.1); White Blood Count 5.7 10^3/uL (4.0-10.0)
--- NOTE | 2023-05-10 07:33 | PC.NURSE ---
Lab notified this nurse that the patients labs will need to be redrawn.
[2023-05-10 08:41] LABS: Alanine Aminotransferase 14 U/L (0-33); Albumin Level 3.5 g/dL (3.5-5.2); Alkaline Phosphatase 87 U/L (35-105); Anion Gap 11.8 (5-19); Aspartate Amino Transferase 15 U/L (0-32); Blood Urea Nitrogen 6 mg/dL (8-23); Calcium 8.7 mg/dL (8.5-10.5); Carbon Dioxide 24 mmol/L (22-29); Chloride 104 mmol/L (98-107); Globulin 2.6 g/dL (1.3-4.6); Glomerular Filtration Rate 100.6 mL/min (90-130); Glucose 85 mg/dL (65-115); Magnesium 1.9 mg/dL (1.7-2.3); Osmolality Calculated 279 mOsm/kg (285-295); Phosphorus 3.6 mg/dL (2.5-4.5); Potassium 3.8 mmol/L (3.5-5.1); Sodium 136 mmol/L (136-145); Total Bilirubin 0.8 mg/dL (0.15-1.2); Total Protein 6.1 g/dL (6.6-8.7)
[2023-05-10] MEDS: sodium chloride 0.9% 1,000 ML 75 ML IV ×2 (09:10→22:30)
[2023-05-10] MEDS: carvedilol 12.5 mg Tablet PO ×2 (09:10→18:26)
[2023-05-10] MEDS: cilostazol 100 mg Tablet 50 MG PO ×2 (09:10→18:26)
[2023-05-10] MEDS: aspirin 81 mg EC Tablet PO (09:19)
[2023-05-10] MEDS: ondansetron 2 mg/ML SDV 2 mL 4 MG IVP (09:19)
--- NOTE | 2023-05-10 14:35 | P.PN_ITS ---
Subjective Subjective: Patient was seen this morning, she continues to complain of epigastric discomfort, radiating to her back, feeling nauseous, she does report some diarrhea, reports liquid stools, Vitals/I&O/Wt Last Vital Signs Temp 97.7 F 05/10/23 12:00 Pulse 86 05/10/23 12:00 Resp 16 05/10/23 12:00 BP 108/73 05/10/23 12:00 Pulse Ox 95 05/10/23 12:00 O2 Del Method Room Air 05/10/23 08:00 05/09/23 05/10/23 05/10/23 22:59 06:59 14:59 Intake Total 480 / 480 998.75 / 998.75 Balance 480 / 480 998.75 / 998.75 Weight last 48 hrs Weight 72.575 kg Physical Exam Const: COMMON NORMALS: no acute distress and patient oriented x3 Resp: COMMON NORMALS: normal respiratory effort, No retractions, No use of accessory muscles and clear to auscultation bilaterally AUSCULTATION: clear to auscultation bilaterally Cardio: COMMON NORMALS: regular rate, regular rhythm, S1 normal heart sound present and S2 normal heart sound present RATE: regular rate RHYTHM: regular rhythm HEART SOUNDS: S1 normal heart sound present and S2 normal heart sound present GI: OTHER: Abdomen soft, slightly distended, good bowel sounds, has epigastric discomfort on palpation, Extremity: COMMON NORMALS: no pedal edema Neuro: COMMON NORMALS: patient oriented x3 Psych: COMMON NORMALS: mental status grossly normal Data 05/10/23 06:22 05/10/23 08:10 A&P Assessment and plan (1) Acute pancreatitis: (2) HTN (hypertension): Qualifiers: Hypertension type: essential hypertension Qualified Code(s): I10 - Essential (primary) hypertension (3) Hyperlipidemia: Qualifiers: Hyperlipidemia type: unspecified Qualified Code(s): E78.5 - Hyperlipidemia, unspecified (4) Coronary artery disease: (5) Encounter for smoking cessation counseling: (6) Goals of care, counseling/discussion: Plan Acute pancreatitis -No significant radiographic evidence of pancreatitis -Does have elevated lipase, epigastric discomfort, nausea -Triglycerides 151 -Serial abdominal exams -Clear liquids for now -IV fluids -Morphine for pain control -She does not have any significant cardiac symptoms it seems like her pain or is in the epigastrium, that radiates to her chest, however she does have a history of RCA stenting and she has not been taking her aspirin, I will order cardiac e cho, serial EKGs, no significant delta troponin -Triglycerides 151 -Monitor blood pressures closely -Full code goals of care discussion, patient wants to be a full code -Smoking cessation counseling -Protonix for GI prophylaxis -Lovenox and SCDs for DVT prophylaxis -Urine positive for marijuana Attestations Medical Necessity Statement*: Patient requires hospitalization for acute pancreatitis, recurrent nausea, and abdominal pain, requiring inpatient admission Diagnoses Acute pancreatitis K85.90 HTN (hypertension) I10 Hypertension type: essential hypertension Hyperlipidemia E78.5 Hyperlipidemia type: unspecified Coronary artery disease I25.10 Encounter for smoking cessation counseling Z71.6 Goals of care, counseling/discussion Z71.89
[2023-05-10] MEDS: TRAMadol 50 mg Tablet PO (15:31)
--- NOTE | 2023-05-10 16:28 | USCV_ITS ---
Bea Mazariegos Age: 62 Gender: F : 1960 Exam Date: 05/10/2023 13:39 Ordering Phys: Clayton Madrigal MD Technologist: YOHAN [place] [facility] [place] cp BP: / HR: 62 Rhythm: Sinus Technical Quality: Adequate MEASUREMENTS (Male / Female) Normal Values 2D ECHO LV Diastolic Diameter PLAX 5.5 cm 4.2 - 5.9 / 3.9 - 5.3 cm LV Systolic Diameter PLAX 4.1 cm IVS Diastolic Thickness 0.6 cm 0.6 - 1.0 / 0.6 - 0.9 cm IVS Systolic Thickness 1.2 cm LVPW Diastolic Thickness 0.8 cm 0.6 - 1.0 / 0.6 - 0.9 cm LVPW Systolic Thickness 1.1 cm LVOT Diameter 2.0 cm LV Ejection Fraction 2D Teich 50.4 % LV Ejection Fraction MOD 2C 48.5 % LV Ejection Fraction 2C AL 47.8 % LA Diameter 2.7 cm IVC Diameter 1.4 cm M-MODE Aortic Annulus Diameter 3.3 cm LA Ao Ratio MM 1.0 MV E Point Septal Separation 0.6 cm DOPPLER AV Peak Velocity 201.0 cm/s LVOT Peak Velocity 105.0 cm/s AV Area Cont Eq vti 1.3 cm squared AV Area Cont Eq pk 1.6 cm squared MV Area PHT 3.9 cm squared Mitral E to A Ratio 0.7 MV E' Velocity 33.5 cm/s Mitral E to MV E' Ratio 9.1 Mitral E to LV E' Lateral Ratio 8.8 Mitral E to LV E' Septal Ratio 9.5 TR Peak Velocity 171.0 cm/s TR Peak Gradient 11.7 mmHg TV Peak E Velocity 48.0 cm/s Right Atrial Pressure 6.0 mmHg Pulmonary Artery Systolic Pressu 17.7 mmHg PV Peak Velocity 119.0 cm/s FINDINGS Left Ventricle Normal left ventricular size, systolic function and wall thickness, with no regional wall motion abnormalities. Grade I/IV diastolic dysfunction (abnormal relaxation filling pattern), normal to mildly elevated filling pressures. Left ventricular ejection fraction is estimated at 60 %. Right Ventricle Normal right ventricular size and systolic function. Normal right ventricular systolic pressure. Right Atrium The right atrium is normal in size. Left Atrium The left atrium is normal in size. Mitral Valve Structurally normal mitral valve without significant stenosis or prolapse. There is no mitral regurgitation. Aortic Valve Structurally normal trileaflet aortic valve. Mild aortic valve regurgitation. Mild aortic valve stenosis, mean gradient 7 mmHg, NENA 1.3 cm squared. Tricuspid Valve Structurally normal tricuspid valve without significant stenosis or regurgitation. Pulmonary artery systolic pressure is normal. Pulmonic Valve Pulmonic valve not well visualized. Pericardium Normal pericardium without effusion. Aorta Normal ascending aorta dimension. IVC The inferior vena cava appears normal. CONCLUSIONS Normal left ventricular size, systolic function and wall thickness, with no regional wall motion abnormalities. Grade I/IV diastolic dysfunction (abnormal relaxation filling pattern), normal to mildly elevated filling pressures. Left ventricular ejection fraction is estimated at 60 %. Structurally normal trileaflet aortic valve. Mild aortic valve regurgitation. Mild aortic valve stenosis, mean gradient 7 mmHg, NENA 1.3 cm squared. There are no prior echocardiogram studies to compare. Dr. Woo Puentes MD (Electronically Signed) Final Date: 11 May 2023 09:32 S
[2023-05-10] MEDS: enoxaparin 40 mg/0.4 mL Syringe SUBCUT (18:26)
[2023-05-10] MEDS: atorvastatin 40 mg Tablet 80 MG PO (21:14)
[2023-05-10] MEDS: amitriptyline 25 mg Tablet PO (21:15)
[2023-05-10] MEDS: pantoprazole 40 mg SDV IVP (22:34)
[2023-05-11 03:38] VITALS: BP 116/78; PULSE 73; RESP 17; TEMP 36.6; O2SAT 94
[2023-05-11 05:40] VITALS: PULSE 75
[2023-05-11 05:51] LABS: Basophils # 0.1 10^3/uL (0.0-0.1); Basophils % 0.8 %; Eosinophils # 0.1 10^3/uL (0.0-0.8); Eosinophils % 1.9 %; Hematocrit 41.8 % (37.0-47.0); Hemoglobin 13.5 g/dL (11.5-15.3); Lymphocytes % 31.5 %; Mean Corpuscular HGB Conc 32.3 g/dL (30.0-36.0); Mean Corpuscular Hemoglobin 32.1 pg (28.0-34.0); Mean Corpuscular Volume 99.5 fl (81-99); Mean Platelet Volume 9.4 fL (7.4-10.4); Monocytes # 0.5 10^3/uL (0.2-0.9); Monocytes % 7.9 %; Neutrophils # 3.62 10^3/uL (1.8-7.7); Neutrophils % 57.6 %; Nucleated Red Blood Cells % 0 %; Platelet Count 270 10^3/cmm (130-400); Red Cell Distribution Width 12.8 % (12.1-15.1); White Blood Count 6.3 10^3/uL (4.0-10.0)
[2023-05-11 06:09] LABS: Alanine Aminotransferase 13 U/L (0-33); Albumin Level 3.3 g/dL (3.5-5.2); Alkaline Phosphatase 87 U/L (35-105); Anion Gap 9.8 (5-19); Aspartate Amino Transferase 15 U/L (0-32); Blood Urea Nitrogen 6 mg/dL (8-23); Calcium 8.6 mg/dL (8.5-10.5); Carbon Dioxide 24 mmol/L (22-29); Chloride 104 mmol/L (98-107); Globulin 2.6 g/dL (1.3-4.6); Glomerular Filtration Rate 124.2 mL/min (90-130); Glucose 90 mg/dL (65-115); Magnesium 1.9 mg/dL (1.7-2.3); Osmolality Calculated 275 mOsm/kg (285-295); Phosphorus 3.7 mg/dL (2.5-4.5); Potassium 3.8 mmol/L (3.5-5.1); Sodium 134 mmol/L (136-145); Total Bilirubin 0.8 mg/dL (0.15-1.2); Total Protein 5.9 g/dL (6.6-8.7)
[2023-05-11 08:00] VITALS: BP 122/75; PULSE 64; RESP 17; TEMP 36.4; O2SAT 97
[2023-05-11] MEDS: cilostazol 100 mg Tablet 50 MG PO (09:10)
[2023-05-11] MEDS: aspirin 81 mg EC Tablet PO (09:11)
[2023-05-11] MEDS: carvedilol 12.5 mg Tablet PO (09:11)
[2023-05-11] MEDS: cyclobenzaprine 10 mg Tablet 5 MG PO (09:20)
[2023-05-11 11:32] VITALS: BP 133/72; PULSE 66; RESP 17; TEMP 36.1; O2SAT 95
--- NOTE | 2023-05-11 11:45 | P.DS_ITS ---
Discharge Providers Date of Admission: 05/10/23 14:37 Date of Discharge: May 11, 2023 Attending Provider at Admission: Clayton Madrigal MD Attending Provider at Discharge: Clayton Madrigal MD Diagnoses at Discharge Discharge Diagnosis (1) Acute pancreatitis: Status: Acute (2) HTN (hypertension): Status: Acute Qualifiers: Hypertension type: essential hypertension Qualified Code(s): I10 - Essential (primary) hypertension (3) Hyperlipidemia: Status: Acute Qualifiers: Hyperlipidemia type: unspecified Qualified Code(s): E78.5 - Hyperli pidemia, unspecified (4) Coronary artery disease: Status: Acute (5) Encounter for smoking cessation counseling: Status: Acute (6) Goals of care, counseling/discussion: Status: Acute Reason for Visit Reason for Visit: chest pain Hospital Course Hospital Course Bea Mazariegos is a 62 year old female with a past history of CAD status post RCA stenting, history of COPD, used to be on oxygen she tells me, as she lost her primary care provider now she cannot get her oxygen renewed, history of hyperlipidemia, history of peripheral vascular disease, history of GERD, current smoker, history of migraine headaches, who presents to [facility] due to epigastric discomfort, radiating to her back, radiating to her left side.? 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 She tells me that for the last few days she has felt bloated, has not had epigastric discomfort, which has radiated to her left side, radiated to her back, associated with nausea, no vomiting, she also felt pain in her chest, but no isolated chest pain no shortness of breath no diaphoresis, she is also been dealing with severe migraine headaches, and she has been using Excedrin daily, she does report a history of bloody stools in the distant past, she apparently took a trip sometime ago to [place] and she tells me that she had bloody stools throughout the trip, but she has not had bloody stools in a long time, no history of hemorrhoids, she has had multiple scopes she tells me with no significant findings, she never required blood transfusions, denies a history of alcoholism, is a smoker, no steroid use, she is status post cholecystectomy, no significant trauma, Patient was admitted to [facility] for acute pancreatitis, received serial abdominal exams, IV fluids, morphine for pain control, monitor for 48 hours as inpatient, overall her clinical symptoms improved, discharged on instructions to avoid fatty foods, avoid alcohol, slowly advance diet, if any worsening abdominal pain to the emergency room. For her history of CAD, follow- up with cardiology as outpatient, echocardiogram did show mild aortic stenosis, follow-up with cardiology, advised to abstain from marijuana use, advised to abs tain from smoking Physical Exam Const: COMMON NORMALS: no acute distress and patient oriented x3 Resp: COMMON NORMALS: normal respiratory effort, No retractions, No use of accessory muscles and clear to auscultation bilaterally AUSCULTATION: clear to auscultation bilaterally Cardio: COMMON NORMALS: regular rate, regular rhythm, S1 normal heart sound present and S2 normal heart sound present RATE: regular rate RHYTHM: regular rhythm HEART SOUNDS: S1 normal heart sound present and S2 normal heart sound present GI: COMMON NORMALS: Normal to inspection, nondistended, normoactive bowel sounds present and non-tender Extremity: COMMON NORMALS: no pedal edema Neuro: COMMON NORMALS: patient oriented x3 Psych: COMMON NORMALS: mental status grossly normal Discharge Data Studies Completed and Pending Completed Studies During Hospitalization Category Date Time Status CT abdomen pelvis w con* [id number] Stat Cat Scan 05/09/23 13:52 Completed XR chest 1V portable [id number] Stat Exams 05/09/23 13:13 Completed CV. echo complete* [id number] Routine Ultrasound 05/10/23 16:28 Completed Pending at discharge Category Date Time Status Complete Blood Count w/Auto AM LABS Lab 05/12/23 04:00 Ordered Comprehensive Metabolic Panel AM LABS Lab 05/12/23 04:00 Ordered Magnesium AM LABS Lab 05/12/23 04:00 Ordered Phosphorus AM LABS Lab 05/12/23 04:00 Ordered Radiology Impressions Chest X-Ray 05/09/23 13:13 Impression: Atherosclerosis. Abdomen/Pelvis CT 05/09/23 13:52 Impression: Negative for acute intra-abdominal or pelvic abnormalities and no change from prior exam. Laboratory Results WBC 6.3 10^3/uL (4.0-10.0) 05/11/23 05:18 RBC 4.20 10^6/uL (4.1-5.3) 05/11/23 05:18 Hgb 13.5 g/dL (11.5-15.3) 05/11/23 05:18 Hct 41.8 % (37.0-47.0) 05/11/23 05:18 MCV 99.5 fl (81-99) H 05/11/23 05:18 MCH 32.1 pg (28.0-34.0) 05/11/23 05:18 MCHC 32.3 g/dL (30.0-36.0) 05/11/23 05:18 RDW 12.8 % (12.1-15.1) 05/11/23 05:18 Plt Count 270 10^3/cmm (130-400) D 05/11/23 05:18 MPV 9.4 fL (7.4-10.4) 05/11/23 05:18 Neut % (Auto) 57.6 % 05/11/23 05:18 Lymph % (Auto) 31.5 % 05/11/23 05:18 Ward % (Auto) 7.9 % 05/11/23 05:18 Eos % (Auto) 1.9 % 05/11/23 05:18 Baso % (Auto) 0.8 % 05/11/23 05:18 Neut # (Auto) 3.62 10^3/uL (1.8-7.7) 05/11/23 05:18 Lymph # (Auto) 2.0 10^3/uL (0.8-4.8) 05/11/23 05:18 Ward # (Auto) 0.5 10^3/uL (0.2-0.9) 05/11/23 05:18 Eos # (Auto) 0.1 10^3/uL (0.0-0.8) 05/11/23 05:18 Baso # (Auto) 0.1 10^3/uL (0.0-0.1) 05/11/23 05:18 Nucleated RBC % (auto) 0 % 05/11/23 05:18 Nucleated RBCs # 0.0 /100WBC 05/11/23 05:18 Sodium 134 mmol/L (136-145) L 05/11/23 05:18 Potassium 3.8 mmol/L (3.5-5.1) 05/11/23 05:18 Chloride 104 mmol/L (98-107) 05/11/23 05:18 Carbon Dioxide 24 mmol/L (22-29) 05/11/23 05:18 Anion Gap 9.8 (5-19) 05/11/23 05:18 BUN 6 mg/dL (8-23) L 05/11/23 05:18 Creatinine 0.5 mg/dL (0.5-0.9) 05/11/23 05:18 GFR Calculation 124.2 mL/min (90-130) 05/11/23 05:18 Glucose 90 mg/dL (65-115) 05/11/23 05:18 Estimat Average Glucose 111 05/09/23 18:59 Hemoglobin A1c 5.5 % (4.0-6.0) 05/09/23 18:59 Calculated Osmolality 275 mOsm/kg (285-295) L 05/11/23 05:18 Calcium 8.6 mg/dL (8.5-10.5) 05/11/23 05:18 Phosphorus 3.7 mg/dL (2.5-4.5) 05/11/23 05:18 Magnesium 1.9 mg/dL (1.7-2.3) 05/11/23 05:18 Total Bilirubin 0.8 mg/dL (0.15-1.2) 05/11/23 05:18 GGT 31 U/L (5-36) 05/09/23 13:07 AST 15 U/L (0-32) 05/11/23 05:18 ALT 13 U/L (0-33) 05/11/23 05:18 Alkaline Phosphatase 87 U/L (35-105) 05/11/23 05:18 Troponin T Baseline 9 ng/L (0-10) 05/09/23 13:07 Troponin T 120 Minute 12.52 ng/L (0-10) H 05/09/23 15:07 Delta Troponin T 3.52 ABS# (0-10) 05/09/23 15:07 Troponin T Hi Sens 6Hr 9.72 ng/L (0-10) 05/09/23 18:59 Troponin T Hi Sens 6Hr Delta 0.72 ng/L (0-12) 05/09/23 18:59 C-Reactive Protein 6.1 mg/L (0.0-4.9) H 05/09/23 13:07 NT-Pro-B Natriuret Pep 338 pg/mL (0-125) H 05/09/23 13:07 Total Protein 5.9 g/dL (6.6-8.7) L 05/11/23 05:18 Albumin 3.3 g/dL (3.5-5.2) L 05/11/23 05:18 Globulin 2.6 g/dL (1.3-4.6) 05/11/23 05:18 Triglycerides 151 mg/dL (0-150) H 05/09/23 18:59 Cholesterol 150 mg/dL (0-200) 05/09/23 18:59 LDL Cholesterol, Calc 63 mg/dL (50-129) 05/09/23 18:59 HDL Cholesterol 57 mg/dL (60-100) L 05/09/23 18:59 LDL/HDL Ratio 1.11 RATIO (0.00-3.22) 05/09/23 18:59 Cholesterol/HDL Ratio 2.63 mg/dL (0.0-4.40) 05/09/23 18:59 Amylase 494 U/L (28-100) H 05/09/23 13:07 Lipase 1328 U/L (13-60) H 05/09/23 13:00 Procalcitonin 0.05 ng/mL (0-0.5) 05/09/23 13:07 TSH 2.69 uIU/mL (0.27-4.20) 05/09/23 18:59 Urine Color Straw (Yellow) 05/09/23 17:18 Urine Appearance Clear (CLEAR) 05/09/23 17:18 Urine pH 7 (5-7) 05/09/23 17:18 Ur Specific [place] 1.000 (1.005-1.030) L 05/09/23 17:18 Urine Protein Neg (Negative) 05/09/23 17:18 Urine Glucose (UA) Norm (Normal) 05/09/23 17:18 Urine Ketones Negative (Negative) 05/09/23 17:18 Urine Blood 2+ (Negative) H 05/09/23 17:18 Urine Nitrate Negative (Negative) 05/09/23 17:18 Urine Bilirubin Neg (Negative) 05/09/23 17:18 Urine Urobilinogen Norm mg/dL (Negative) 05/09/23 17:18 Ur Leukocyte Esterase Negative (Negative) 05/09/23 17:18 Urine RBC 0-4 /hpf (0-2) H 05/09/23 17:18 Urine WBC 0-4 /hpf (0-5) H 05/09/23 17:18 Ur Squamous Epith Cells 5-10 /hpf (0-5) H 05/09/23 17:18 Amorphous Sediment Not Reportable 05/09/23 17:18 Urine Bacteria Trace /hpf (NONE) 05/09/23 17:18 Urine Opiates Screen Negative ng/mL (Negative) 05/09/23 17:18 Ur Barbiturates Screen Negative ng/mL (Negative) 05/09/23 17:18 Ur Phencyclidine Scrn Negative ng/mL (Negative) 05/09/23 17:18 Ur Amphetamines Screen Negative ng/mL (Negative) 05/09/23 17:18 U Benzodiazepines Scrn Negative ng/mL (Negative) 05/09/23 17:18 Urine Cocaine Screen Negative ng/mL (Negative) 05/09/23 17:18 U Marijuana (THC) Screen Positive ng/mL (Negative) H 05/09/23 17:18 Vitals Last Vital Signs Temp 97 F L 05/11/23 11:32 Pulse 66 05/11/23 11:32 Resp 17 05/11/23 11:32 BP 133/72 05/11/23 11:32 Pulse Ox 95 05/11/23 11:32 O2 Del Method Room Air 05/11/23 11:32 Discharge Plan Discharge Patient Disposition: Home Condition: Stable Prescriptions: Continued pantoprazole 40 mg tablet,delayed release (DR/EC) 40 mg PO QAM rosuvastatin 20 mg tablet 20 mg PO BEDTIME cilostazol 50 mg tablet 50 mg PO BID amitriptyline 25 mg tablet 25 mg PO BEDTIME Rx Instructions: PT STATES NOT STARTED TAKING OF 05/09/23 Changed carvedilol 25 mg tablet 12.5 mg PO BID 30 Days Qty: 30 0RF Rx Instructions: must administer with a meal/food Discontinued Excedrin Migraine 250-250-65 mg Tablet 2 tab PO QID PRN (Reason: Migraine Headache) Discharge Orders: Discharge Order (Routine); Ordered 05/11/23 Ordered By: Clayton Kaitlin Referrals: Amanda Vázquez MD [Physician] - 1 month (, CAD) Discharge Diet: Full LIquid Discharge Activity: Resume usual activity Patient Instructions: Opioid Safety Activity Restrictions/Additional Instructions: - Please continue full liquid diet for least 24 hours, before transitioning to GI soft diet -If you have any recurrent abdominal pain please go to emergency room Discharge Attestations Time Spent in Discharge Care*: greater than 30 min Quality Metrics Clinical Quality Measures [ No reported AMI, CVA or VTE this stay] Coding Level of Care Code 85976 Total time (in minutes) for Discharge: 45 Diagnoses Acute pancreatitis K85.90 HTN (hypertension) I10 Hypertension type: essential hypertension Hyperlipidemia E78.5 Hyperlipidemia type: unspecified Coronary artery disease I25.10 Encounter for smoking cessation counseling Z71.6 Goals of care, counseling/discussion Z71.89
[2023-05-11 13:11] VITALS: BP 133/72; PULSE 66; RESP 17; TEMP 36.1; O2SAT 95
== END 2023-05-11 13:13 | disposition home or self-care (01) | DRG 440 ==
LOC: ER 15:44 → MEDSURG 05-10 02:56
PROVIDERS: Admitting Provider Family Medicine; Emergency Provider Emergency Medicine; Visit Provider Family Medicine
DX: K85.90 Acute pancreatitis without necrosis or infection, unspecified (principal); I25.10 Atherosclerotic heart disease of native coronary artery without angina pectoris; Z95.5 Presence of coronary angioplasty implant and graft; J44.9 Chronic obstructive pulmonary disease, unspecified; E78.5 Hyperlipidemia, unspecified; E11.51 Type 2 diabetes mellitus with diabetic peripheral angiopathy without gangrene; K21.9 Gastro-esophageal reflux disease without esophagitis; F17.200 Nicotine dependence, unspecified, uncomplicated; G43.909 Migraine, unspecified, not intractable, without status migrainosus; I35.0 Nonrheumatic aortic (valve) stenosis; F12.90 Cannabis use, unspecified, uncomplicated; I10 Essential (primary) hypertension
CPT/HCPCS: 36415; 71045; 74177; 80053; 80061; 80306; 81001; 82150; 82977; 83036; 83690; 83735; 83880; 84100; 84145; 84443; 84484; 85025; 86140; 93005; 93306; 94664; 96372; 99285; C9113; G0378; J1650; J2405; J7030; Q9967

== ENCOUNTER → 2023-05-22 13:03 | Outpatient (BNVA) | payer MEDICARE, MEDICAID, SELFPAY | PROVIDERS: Visit Provider Internal Medicine Cardiovascular Disease | DX: I10 Essential (primary) hypertension (principal); E78.5 Hyperlipidemia, unspecified; I25.10 Atherosclerotic heart disease of native coronary artery without angina pectoris; E11.9 Type 2 diabetes mellitus without complications; Z95.5 Presence of coronary angioplasty implant and graft; F17.200 Nicotine dependence, unspecified, uncomplicated | CPT/HCPCS: 99213 ==

== ENCOUNTER → 2023-06-02 15:53 | Outpatient (BNVA) | payer MEDICARE, MEDICAID, SELFPAY | PROVIDERS: Visit Provider Family Medicine | DX: K52.9 Noninfective gastroenteritis and colitis, unspecified (principal); R19.7 Diarrhea, unspecified | CPT/HCPCS: 87493; 87506 ==

== ENCOUNTER → 2023-08-28 09:04 | Outpatient (BNVA) | payer MEDICARE, MEDICAID, SELFPAY | PROVIDERS: PCP Family Medicine; Visit Provider Anesthesiology Pain Medicine | DX: G89.29 Other chronic pain; M51.16 Intervertebral disc disorders with radiculopathy, lumbar region; M47.816 Spondylosis without myelopathy or radiculopathy, lumbar region | CPT/HCPCS: 99204 ==

== ENCOUNTER → 2023-09-16 14:07 | Outpatient (BNVA) | payer MEDICARE, MEDICAID, SELFPAY | PROVIDERS: PCP Family Medicine; Visit Provider Anesthesiology Pain Medicine | DX: M51.16 Intervertebral disc disorders with radiculopathy, lumbar region | CPT/HCPCS: 64483; 64484; J1100; J3490 ==

== ENCOUNTER → 2023-09-30 13:58 | Outpatient (BNVA) | payer MEDICARE, MEDICAID, SELFPAY | PROVIDERS: PCP Family Medicine; Visit Provider Anesthesiology Pain Medicine | DX: M54.16 Radiculopathy, lumbar region (principal); M54.41 Lumbago with sciatica, right side; G89.29 Other chronic pain | CPT/HCPCS: 64483; 64484; J1100; J3490 ==

== ENCOUNTER → 2023-10-14 09:16 | Outpatient (BNVA) | payer MEDICARE, MEDICAID, SELFPAY | PROVIDERS: PCP Family Medicine; Visit Provider Anesthesiology Pain Medicine | DX: G89.29 Other chronic pain; M51.16 Intervertebral disc disorders with radiculopathy, lumbar region; M47.816 Spondylosis without myelopathy or radiculopathy, lumbar region | CPT/HCPCS: 99214 ==

== ENCOUNTER → 2023-11-06 12:51 | Outpatient (BNVA) | payer MEDICARE, MEDICAID, SELFPAY | PROVIDERS: PCP Family Medicine; Visit Provider Anesthesiology Pain Medicine | DX: M47.816 Spondylosis without myelopathy or radiculopathy, lumbar region (principal); M54.41 Lumbago with sciatica, right side; G89.29 Other chronic pain | CPT/HCPCS: 64493; 64494; 64495; J3490 ==

== ENCOUNTER → 2023-11-13 13:51 | Outpatient (BNVA) | payer MEDICARE, MEDICAID, SELFPAY | PROVIDERS: PCP Family Medicine; Visit Provider Anesthesiology Pain Medicine | DX: M47.816 Spondylosis without myelopathy or radiculopathy, lumbar region (principal); M54.41 Lumbago with sciatica, right side; G89.29 Other chronic pain | CPT/HCPCS: 64493; 64494; 64495; J3490 ==

== ENCOUNTER → 2023-11-20 09:57 | Outpatient (BNVA) | payer MEDICARE, MEDICAID, SELFPAY | PROVIDERS: PCP Family Medicine; Visit Provider Internal Medicine Cardiovascular Disease | DX: Z95.5 Presence of coronary angioplasty implant and graft (principal); E78.5 Hyperlipidemia, unspecified; I25.10 Atherosclerotic heart disease of native coronary artery without angina pectoris; I10 Essential (primary) hypertension; F17.219 Nicotine dependence, cigarettes, with unspecified nicotine-induced disorders; E11.9 Type 2 diabetes mellitus without complications; K21.9 Gastro-esophageal reflux disease without esophagitis; J43.1 Panlobular emphysema; F17.210 Nicotine dependence, cigarettes, uncomplicated | CPT/HCPCS: 99213 ==

== ENCOUNTER → 2024-10-13 09:32 | Outpatient (BNVA) | payer MEDICARE, MEDICAID, SELFPAY | PROVIDERS: PCP Family Medicine; Visit Provider Family Medicine | DX: I10 Essential (primary) hypertension (principal); E78.5 Hyperlipidemia, unspecified; E11.9 Type 2 diabetes mellitus without complications | CPT/HCPCS: 80053; 80061; 83036; 84439; 84443; 85025 ==

== ENCOUNTER → 2024-11-22 13:07 | Outpatient (BNVA) | payer MEDICARE, MEDICAID, SELFPAY | PROVIDERS: PCP Family Medicine; Visit Provider Anesthesiology Pain Medicine | DX: M47.816 Spondylosis without myelopathy or radiculopathy, lumbar region; M51.16 Intervertebral disc disorders with radiculopathy, lumbar region; G89.29 Other chronic pain | CPT/HCPCS: 99214 ==

== ENCOUNTER 2024-11-23 14:00 | Outpatient (CLI) | payer MEDICARE, MEDICAID, SELFPAY ==
--- NOTE | 2024-11-23 14:45 | USR_ITS ---
PROCEDURE INFORMATION: Exam: US Duplex Bilateral Lower Extremity Arteries Exam date and time: 11/23/2024 2:37 PM Age: 64 years old Clinical indication: Pain; Leg, lower; Bilateral; Additional info: Claudication TECHNIQUE: Imaging protocol: Real-time ultrasound scan of the arteries of the bilateral lower extremities with 2-D clarke scale, color Doppler flow and spectral waveform analysis. Images documented and saved. COMPARISON: CT abdomen pelvis w con* [id number] 05/09/2023 2:16 PM FINDINGS: Right external iliac artery: Mild distal smooth plaque. Proximal 65.9 cm/sec, mid 73.6 cm/sec, distal 89.8 cm/sec, triphasic. Right common femoral artery: 84 cm/sec, triphasic. Right superficial femoral artery: Proximal SFA 93 cm/sec, triphasic. Mid SFA 77 cm/sec, triphasic. Distal SFA 72 cm/sec, triphasic. Right popliteal artery: 47 cm/sec, triphasic. Right calf/foot arteries: [employer] 39 cm/sec, triphasic. Dorsalis pedis 46 cm/sec, triphasic. Left external iliac artery: Mild distal calcified smooth plaque. Proximal 66.4, mid 73.5, distal 76.6 cm/sec, triphasic. Left common femoral artery: cm/sec, triphasic. Left profunda femoris artery: cm/sec, triphasic. Left superficial femoral artery: Proximal SFA 73 cm/sec, triphasic. Mid SFA 73 cm/sec, triphasic. Distal SFA 73 cm/sec, triphasic. Left popliteal artery: 42 cm/sec, triphasic. Left calf/foot arteries: [employer] 27 cm/sec, triphasic. Dorsalis pedis 43 cm/sec, triphasic. Right ankle-brachial index: 1.05 (dorsalis pedis); 1.07 (posterior tibial). Left ankle-brachial index: 0.75 (dorsalis pedis); 0.78 (posterior tibial). US/CV arterial duplex [facility] [id number] IMPRESSION: No specific hemodynamically significant stenosis by peak systolic velocity criteria identified. Decreased left ankle-brachial index suggesting moderate peripheral arterial disease.
== END 2024-11-23 14:01 | disposition home or self-care (01) ==
LOC: RAD 14:04
PROVIDERS: PCP Family Medicine; Visit Provider Internal Medicine Cardiovascular Disease
DX: I73.9 Peripheral vascular disease, unspecified (principal); R93.89 Abnormal findings on diagnostic imaging of other specified body structures; I70.8 Atherosclerosis of other arteries
CPT/HCPCS: 93925

== ENCOUNTER → 2024-12-08 14:33 | Outpatient (BNVA) | payer MEDICARE, MEDICAID, SELFPAY | PROVIDERS: PCP Family Medicine; Visit Provider Anesthesiology Pain Medicine | DX: M54.16 Radiculopathy, lumbar region (principal); M54.9 Dorsalgia, unspecified; M54.41 Lumbago with sciatica, right side; G89.29 Other chronic pain; E11.9 Type 2 diabetes mellitus without complications; Z01.818 Encounter for other preprocedural examination | CPT/HCPCS: 36416; 64483; 64484; J1100; J3490 ==

== ENCOUNTER → 2025-01-07 12:08 | Outpatient (BNVA) | payer MEDICARE, MEDICAID, SELFPAY | PROVIDERS: PCP Family Medicine; Visit Provider Family Medicine | DX: R19.7 Diarrhea, unspecified (principal) | CPT/HCPCS: 80053; 85025 ==

== ENCOUNTER → 2025-01-25 09:48 | Outpatient (BNVA) | payer MEDICARE, MEDICAID, SELFPAY | PROVIDERS: PCP Family Medicine; Visit Provider Anesthesiology Pain Medicine | DX: M51.16 Intervertebral disc disorders with radiculopathy, lumbar region (principal); G89.29 Other chronic pain; M47.816 Spondylosis without myelopathy or radiculopathy, lumbar region; F17.210 Nicotine dependence, cigarettes, uncomplicated | CPT/HCPCS: 99214 ==

== ENCOUNTER → 2025-02-21 11:00 | Outpatient (BNVA) | payer MEDICARE, MEDICAID, SELFPAY | PROVIDERS: PCP Family Medicine; Visit Provider Nurse Practitioner Family | DX: I73.9 Peripheral vascular disease, unspecified (principal) | CPT/HCPCS: 99213 ==

== ENCOUNTER → 2025-05-23 17:10 | Outpatient (BNVA) | payer OTHER, MEDICAID, SELFPAY | PROVIDERS: PCP Family Medicine; Visit Provider Internal Medicine Cardiovascular Disease | DX: Z79.899 Other long term (current) drug therapy (principal) | CPT/HCPCS: 36415; 82550 ==